=== PATIENT | female | born 1965 | race Hispanic/Latino ===

== ENCOUNTER → 2017-07-05 | Outpatient (CLI) | payer MEDICAID | END | disposition home or self-care (01) | LOC: RAH 07:44 | PROVIDERS: ATTEND Internal Medicine Gastroenterology | DX: K74.3 Primary biliary cirrhosis (principal); R16.2 Hepatomegaly with splenomegaly, not elsewhere classified | CPT/HCPCS: 76700; 93975 ==

== ENCOUNTER → 2018-02-02 | Outpatient (CLI) | payer MEDICAID | END | disposition home or self-care (01) | LOC: RAH 07:36 | PROVIDERS: ATTEND Internal Medicine | DX: K74.5 Biliary cirrhosis, unspecified (principal) | CPT/HCPCS: 76700; 93975 ==

== ENCOUNTER → 2018-07-09 | Outpatient (CLI) | payer MEDICAID | END | disposition home or self-care (01) | LOC: RAH 07:31 | PROVIDERS: ATTEND Internal Medicine Gastroenterology | DX: R16.2 Hepatomegaly with splenomegaly, not elsewhere classified (principal); K74.3 Primary biliary cirrhosis; Z90.49 Acquired absence of other specified parts of digestive tract | CPT/HCPCS: 76700; 93975 ==

== ENCOUNTER → 2019-01-18 | Outpatient (CLI) | payer MEDICAID | END | disposition home or self-care (01) | LOC: RAH 08:26 | PROVIDERS: ATTEND Internal Medicine Gastroenterology | DX: R16.2 Hepatomegaly with splenomegaly, not elsewhere classified (principal); K74.3 Primary biliary cirrhosis; Z90.49 Acquired absence of other specified parts of digestive tract | CPT/HCPCS: 76700; 93975 ==

== ENCOUNTER 2021-11-16 05:30 | Day surgery (SDC) | payer MEDICAID ==
[2021-11-15 15:39] LABS: BASOPHILS % (AUTO) 0.4 % (0.0-5.0); EOSINOPHILS % (AUTO) 2.1 % (0.0-8.0); LYMPHOCYTES % (AUTO) 14.1 % (21.0-51.0); MEAN CORPUSCULAR HEMOGLOBIN 28.5 pg (27.0-33.0); MEAN CORPUSCULAR HGB CONC 32.5 g/dL (32.0-36.0); MEAN CORPUSCULAR VOLUME 87.8 fL (79-99); MONOCYTES % (AUTO) 6.5 % (3.0-13.0); NEUTROPHILS % (AUTO) 76.5 % (40.0-77.0); PLATELET COUNT (AUTO) 47 K/uL (130-400); WHITE BLOOD COUNT (AUTO) 4.8 K/uL (4.8-10.8)
[2021-11-15 15:45] LABS: APPEARANCE,URINE CLEAR (CLEAR); BILIRUBIN,URINE NEGATIVE (NEGATIVE); COLOR,URINE LIGHT-YELLOW (YELLOW); GLUCOSE, URINE (UA) 300 mg/dL (NEGATIVE); KETONES,URINE NEGATIVE (NEGATIVE); LEUKOCYTE ESTERASE ,URINE 250 Leu/uL (NEGATIVE); NITRATE,URINE NEGATIVE (NEGATIVE); OCCULT BLOOD,URINE NEGATIVE (NEGATIVE); PROTEIN,URINE NEGATIVE (NEGATIVE); UROBILINOGEN,URINE 0.2 mg/dL (0.2-1.0)
[2021-11-15 15:49] LABS: RBC,URINE 0-1 /HPF (0-1); SQUAMOUS EPITHELIAL CELL,UR RARE /HPF (0-2)
[2021-11-15 16:03] LABS: INR 1.1 (0.85-1.15); PROTHROMBIN TIME 11.9 SEC (9.6-11.6)
[2021-11-15 16:04] LABS: PARTIAL THROMBOPLASTIN TIME 27.7 SEC (26.3-35.5)
[2021-11-15 16:05] LABS: PLATELET MORPHOLOGY COMMENT DECREASED
[2021-11-15 16:49] VITALS: BP 160/70
[2021-11-16] VITALS (20 sets, daily range): BP systolic 79–145; BP diastolic 30–74
[~2021-11-16] VITALS: Ht 152.4 cm; Wt 94.1 kg
[2021-11-16] MEDS ORDERED: 0.9%NACL 1000ML 1,000 ML IV ONE (06:14)
[2021-11-16] MEDS ORDERED: FERR-72 PO (06:28)
[2021-11-16] MEDS ORDERED: LORA10TA7 PO (06:28)
[2021-11-16] MEDS ORDERED: FAMO20TA8 PO (06:28)
[2021-11-16] MEDS ORDERED: GLYB5TAB8 PO ×2 (06:28)
[2021-11-16] MEDS ORDERED: LISI20TA24 PO (06:28)
[2021-11-16] MEDS ORDERED: INSU10VI3 SQ (06:28)
[2021-11-16] MEDS ORDERED: METF-444 PO (06:28)
[2021-11-16] MEDS ORDERED: URSO250T12 PO ×2 (06:28)
[2021-11-16] MEDS ORDERED: METO50TA18 PO (06:28)
[2021-11-16] MEDS ORDERED: INSULIN HUMULIN R 100 UNIT/ML 3ML ONE (07:20)
[2021-11-16] MEDS ORDERED: FENTANYL CITRATE PF 50 MCG/1 ML 2ML VIAL ONE ×2 (07:31→09:54)
[2021-11-16] MEDS ORDERED: ROCURONIUM 10MG/1ML SYR 10 MG/ML ML ONE (07:31)
[2021-11-16] MEDS ORDERED: ONDANSETRON 4MG INJ ONE (07:31)
[2021-11-16] MEDS ORDERED: PROPOFOL 10 MG/ML 20ML VIAL IV ONE (07:31)
[2021-11-16] MEDS ORDERED: MIDAZOLAM HCL 1 MG/ML 2ML VIAL ONE (08:43)
[2021-11-16] MEDS ORDERED: LACTATED RINGERS 1000ML 1,000 ML IV SCH (09:00)
[2021-11-16] MEDS ORDERED: EPHEDRINE SULFATE 50 MG/ML AMPULE ONE ×2 (09:31→10:40)
[2021-11-16] MEDS ORDERED: ALBUMIN (HUMAN) 5% 250 ML IV ONE (10:30)
== END 2021-11-16 12:20 | disposition home or self-care (01) ==
LOC: DAH 05:30
PROVIDERS: ATTEND Obstetrics & Gynecology
DX: N95.0 Postmenopausal bleeding (principal); N95.2 Postmenopausal atrophic vaginitis; N84.0 Polyp of corpus uteri; E66.01 Morbid (severe) obesity due to excess calories; E11.9 Type 2 diabetes mellitus without complications; E78.5 Hyperlipidemia, unspecified; F41.9 Anxiety disorder, unspecified; F31.9 Bipolar disorder, unspecified; D50.9 Iron deficiency anemia, unspecified; K76.0 Fatty (change of) liver, not elsewhere classified; Z98.891 History of uterine scar from previous surgery; Z90.49 Acquired absence of other specified parts of digestive tract; Z82.49 Family history of ischemic heart disease and other diseases of the circulatory system; Z83.3 Family history of diabetes mellitus; Z83.438 Family history of other disorder of lipoprotein metabolism and other lipidemia; Z79.84 Long term (current) use of oral hypoglycemic drugs; Z68.38 Body mass index [BMI] 38.0-38.9, adult; Z79.899 Other long term (current) drug therapy
CPT/HCPCS: 84703; 84702; 85025; 85610; 85730; 86850; 86900; 86901; 87088; 87426; 81001; 36415; 58558; 82948 ×2; 88305; 88342; 88341; A6260; J1815; A4663; J7030 ×2; A4351; P9045; J3010 ×2; J3490 ×3; J2250; J2405; A4215; A4223; A4222; A4221; J2704

== ENCOUNTER 2023-01-29 11:18 | Emergency (ER) | payer MEDICAID ==
[~2023-01-29] VITALS: Ht 152.4 cm; Wt 98.4 kg
[~2023-01-29 11:18] MED LIST: FAMO20TA8 PO; FERR-72 PO; GLYB5TAB8 PO; INSU10VI3 SQ; LISI20TA24 PO; LORA10TA7 PO; METF-444 PO; METO50TA18 PO; URSO250T12 PO
[2023-01-29 12:50] LABS: HEMATOCRIT 24.3 % (36-48); MEAN CORPUSCULAR HEMOGLOBIN 30.1 pg (27.0-33.0); MEAN CORPUSCULAR HGB CONC 31.7 g/dL (32.0-36.0); MEAN CORPUSCULAR VOLUME 94.9 fL (79-99); PLATELET COUNT (AUTO) 62 K/uL (130-400); RED BLOOD CELL COUNT(AUTO) 2.56 MIL/uL (4.00-5.50); RED CELL DISTRIBUTION WIDTH 14.7 % (11.0-15.5)
[2023-01-29 13:05] LABS: CREATININE 1.3 mg/dL (0.5-1.5); POTASSIUM 5.3 mmol/L (3.5-5.1)
[2023-01-29 13:08] LABS: ALBUMIN 2.5 g/dL (3.5-5.0); BILIRUBIN,TOTAL 0.5 mg/dL (0.2-1.0); TOTAL PROTEIN, SERUM 7.4 g/dL (6.0-8.3)
[2023-01-29 13:14] LABS: B-TYPE NATRIURETIC PEPTIDE 39 pg/mL (0-100)
[2023-01-29 13:23] LABS: BAND NEUTROPHILS % (MANUAL) 1 % (0-2); BASOPHILS % (MANUAL) 1 % (0-2); EOSINOPHILS % (MANUAL) 2 % (1-6); LYMPHOCYTES % (MANUAL) 18 % (22-44); MAN.DIFF COMMENT-IMPRESSION MANUAL DIFFERENTIAL; MONOCYTES % (MANUAL) 2 % (2-9); SEGMENTED NEUTROPHILS % 76 % (40-70); TOTAL CELLS COUNTED 100; WBC MORPHOLOGY CONSISTENT W/DIFF
[2023-01-29 13:24] LABS: PLATELET MORPHOLOGY COMMENT DECREASED
[2023-01-29 14:20] VITALS: PULSE 97; RESP 20
[2023-01-29] MEDS ORDERED: ALBUTEROL 0.083% 2.5 MG/3 ML INH IH ONE (14:30)
[2023-01-29] MEDS ORDERED: FUROSEMIDE 40MG VIAL IV ONE (14:30)
[2023-01-29] MEDS ORDERED: FURO40TA5 PO (17:08)
[2023-01-29 17:27] VITALS: BP 124/61; PULSE 96; RESP 18; O2SAT 98
== END 2023-01-29 17:28 | disposition home or self-care (01) ==
LOC: EDH 11:18
DX: R60.9 Edema, unspecified (principal); K74.60 Unspecified cirrhosis of liver; E11.65 Type 2 diabetes mellitus with hyperglycemia; E87.5 Hyperkalemia; E78.00 Pure hypercholesterolemia, unspecified; I10 Essential (primary) hypertension; K21.9 Gastro-esophageal reflux disease without esophagitis; Z79.4 Long term (current) use of insulin; Z79.84 Long term (current) use of oral hypoglycemic drugs; Z79.899 Other long term (current) drug therapy; Z90.49 Acquired absence of other specified parts of digestive tract
CPT/HCPCS: 99285; 96374; 71045; 80053; 83880; 82140; 85025; 36415; 93005; 94640; J1940

== ENCOUNTER → 2023-09-12 | Outpatient (CLI) | payer MEDICAID ==
[~2023-09-12] MED LIST changes: +ALBUMIN (HUMAN) 25% 200 ML IV ONE; +FURO40TA5 PO
[2023-09-12 09:35] LABS: BASOPHILS # (AUTO) 0.03 K/uL (0.00-0.20); BASOPHILS % (AUTO) 0.5 % (0.0-5.0); EOSINOPHILS # (AUTO) 0.21 K/uL (0.00-0.70); EOSINOPHILS % (AUTO) 3.2 % (0.0-8.0); HEMATOCRIT 25.8 % (36-48); IMMATURE GRANULOCYTE ABSOLUTE 0.03 K/uL (0-1); LYMPHOCYTES # (AUTO) 0.4 K/uL (1.0-4.8); LYMPHOCYTES % (AUTO) 6.8 % (21.0-51.0); MEAN CORPUSCULAR HGB CONC 31.4 g/dL (32.0-36.0); MONOCYTES # (AUTO) 0.6 K/uL (0.1-1.0); MONOCYTES % (AUTO) 9.4 % (3.0-13.0); NEUTROPHILS # (AUTO) 5.2 K/uL (1.8-7.7); NEUTROPHILS % (AUTO) 79.6 % (40.0-77.0); PLATELET COUNT (AUTO) 110 K/uL (130-400); RED CELL DISTRIBUTION WIDTH 15.3 % (11.0-15.5); WHITE BLOOD COUNT (AUTO) 6.5 K/uL (4.8-10.8)
[2023-09-12 09:46] LABS: INR 1.19 (0.85-1.15); PROTHROMBIN TIME 12.7 SEC (9.6-11.6)
[2023-09-12 09:48] LABS: PARTIAL THROMBOPLASTIN TIME 27.3 SEC (26.3-35.5)
[2023-09-12 09:49] LABS: ALBUMIN 2.5 g/dL (3.5-5.0); BILIRUBIN,TOTAL 0.5 mg/dL (0.2-1.0); CREATININE 1.9 mg/dL (0.5-1.0); POTASSIUM 5.4 mmol/L (3.5-5.1); TOTAL PROTEIN, SERUM 7.9 g/dL (6.0-8.3)
[2023-09-12 13:52] LABS: TOTAL PROTEIN,BODY FLUID 2.8 g/dL
[2023-09-12 15:23] LABS: BODY FLUID RBC 227038 /cu. mm.; BODY FLUID WBC 175 /cu. mm.
[2023-09-12 15:28] LABS: APPEARANCE BODY FLUID BLOODY (CLEAR); COLOR,BODY FLUID RED (LT YELLOW); SPECIMENTYPE,BODY FLUID ASCITES; TOTAL VOLUME,BODY FLUID 8100 mL
[2023-09-12 17:10] LABS: BF LYMPHOCYTE 37 %; BF MACROPHAGE 50; BF MESOTHELIAL 2 %; BF MONOCYTE 1 %; BF TOTAL CELLS COUNTED 100
== END | disposition home or self-care (01) ==
LOC: RAH 08:47
PROVIDERS: ATTEND Internal Medicine Gastroenterology
DX: K70.31 Alcoholic cirrhosis of liver with ascites (principal); D64.9 Anemia, unspecified; K76.82 Hepatic encephalopathy; I85.10 Secondary esophageal varices without bleeding; K21.9 Gastro-esophageal reflux disease without esophagitis; K29.50 Unspecified chronic gastritis without bleeding; R14.0 Abdominal distension (gaseous); K44.9 Diaphragmatic hernia without obstruction or gangrene; K76.0 Fatty (change of) liver, not elsewhere classified; K62.89 Other specified diseases of anus and rectum; E55.9 Vitamin D deficiency, unspecified; F41.9 Anxiety disorder, unspecified; F31.9 Bipolar disorder, unspecified; Z90.49 Acquired absence of other specified parts of digestive tract; E11.9 Type 2 diabetes mellitus without complications; I10 Essential (primary) hypertension; E78.00 Pure hypercholesterolemia, unspecified; Z79.4 Long term (current) use of insulin; Z79.899 Other long term (current) drug therapy
CPT/HCPCS: 49083; 84157; 80053; 85025; 89051; 85610; 85730; 87071; 87076; 87205; 82042; 36415; 88305; 88112; P9046; C1729; 96365

== ENCOUNTER → 2023-09-27 | Outpatient (CLI) | payer MEDICAID ==
[2023-09-27 13:55] LABS: ALBUMIN,BODY FLUID 0.9 g/dL; TOTAL PROTEIN,BODY FLUID 2.8 g/dL
[2023-09-27 14:08] LABS: APPEARANCE BODY FLUID CLEAR (CLEAR); COLOR,BODY FLUID YELLOW (LT YELLOW); SPECIMENTYPE,BODY FLUID ASCITES; TOTAL VOLUME,BODY FLUID 7500 mL
[2023-09-27 14:17] LABS: BODY FLUID RBC 4607 /cu. mm.; BODY FLUID WBC 278 /cu. mm.
[2023-09-27 15:02] LABS: BF LYMPHOCYTE 30 %; BF MACROPHAGE 7; BF MESOTHELIAL 59 %; BF MONOCYTE 1 %; BF TOTAL CELLS COUNTED 100
== END | disposition home or self-care (01) ==
LOC: RAH 08:46
PROVIDERS: ATTEND Internal Medicine Gastroenterology
DX: R18.8 Other ascites (principal); K74.3 Primary biliary cirrhosis
CPT/HCPCS: 49083; 84157; 89051; 87071; 87076; 87205; 82042; P9046; C1729

== ENCOUNTER → 2023-11-21 | Outpatient (CLI) | payer MEDICAID ==
[~2023-11-21] MED LIST changes: -ALBUMIN (HUMAN) 25% 200 ML IV ONE
[2023-11-21 11:30] LABS: ALBUMIN,BODY FLUID 0.9 g/dL; TOTAL PROTEIN,BODY FLUID 2.7 g/dL
[2023-11-21 12:08] LABS: APPEARANCE BODY FLUID CLEAR (CLEAR); COLOR,BODY FLUID YELLOW (LT YELLOW); SPECIMENTYPE,BODY FLUID ASCITES; TOTAL VOLUME,BODY FLUID 3500 mL
[2023-11-21 12:10] LABS: BODY FLUID RBC 1407 /cu. mm.; BODY FLUID WBC 263 /cu. mm.
[2023-11-21 13:25] LABS: BF BLAST 13 %; BF LYMPHOCYTE 39 %; BF MESOTHELIAL 35 %; BF MONOCYTE 9 %; BF TOTAL CELLS COUNTED 100
== END | disposition home or self-care (01) ==
LOC: RAH 08:09
PROVIDERS: ATTEND Internal Medicine Gastroenterology
DX: R18.8 Other ascites (principal); K74.3 Primary biliary cirrhosis; I10 Essential (primary) hypertension; E78.00 Pure hypercholesterolemia, unspecified; E11.9 Type 2 diabetes mellitus without complications; F41.9 Anxiety disorder, unspecified; F31.9 Bipolar disorder, unspecified; K21.9 Gastro-esophageal reflux disease without esophagitis; D64.9 Anemia, unspecified; K76.82 Hepatic encephalopathy; K29.50 Unspecified chronic gastritis without bleeding; K44.9 Diaphragmatic hernia without obstruction or gangrene; K76.0 Fatty (change of) liver, not elsewhere classified; E55.9 Vitamin D deficiency, unspecified; K62.89 Other specified diseases of anus and rectum; R14.0 Abdominal distension (gaseous); E66.9 Obesity, unspecified; I85.10 Secondary esophageal varices without bleeding; Z90.49 Acquired absence of other specified parts of digestive tract; Z68.35 Body mass index [BMI] 35.0-35.9, adult; Z79.01 Long term (current) use of anticoagulants; Z79.4 Long term (current) use of insulin; Z79.899 Other long term (current) drug therapy
CPT/HCPCS: 49083; 84157; 89051; 87071; 87076; 87205; 82042; 88305; 88112; C1729

== ENCOUNTER → 2023-12-05 | Outpatient (CLI) | payer MEDICAID ==
[~2023-12-05] MED LIST changes: +ALBUMIN (HUMAN) 25% 100 ML IV ONE
--- NOTE | 2023-12-05 13:09 | HMCIMG ---
US ABDOMINAL PARACENTESIS IR REASON: ASCITES TECHNIQUE: Paracentesis was performed with ultrasound guidance. The puncture site was selected in the Left lower quadrant and overlying skin prepped and draped in a sterile fashion. 1% Xylocaine infiltration was performed. Catheter was placed in the fluid using trocar technique. 6.2 L were removed. Fluid sample was submitted for laboratory evaluation. The patient showed no evidence of complication during the procedure. IMPRESSION: 1. Ultrasound-guided paracentesis.
[2023-12-05 15:19] LABS: APPEARANCE BODY FLUID SLIGHTLY CLOUDY (CLEAR); COLOR,BODY FLUID LT YELLOW (LT YELLOW); SPECIMENTYPE,BODY FLUID ASCITES; TOTAL VOLUME,BODY FLUID 6200 mL
[2023-12-05 15:40] LABS: BODY FLUID RBC 975 /cu. mm.; BODY FLUID WBC 122 /cu. mm.
[2023-12-05 15:44] LABS: TOTAL PROTEIN,BODY FLUID 2.8 g/dL
[2023-12-05 16:24] LABS: BF EOSINOPHIL 1 %; BF LYMPHOCYTE 31 %; BF MACROPHAGE 58; BF MESOTHELIAL 1 %; BF TOTAL CELLS COUNTED 100
== END | disposition home or self-care (01) ==
LOC: RAH 09:10
PROVIDERS: ATTEND Internal Medicine Gastroenterology
DX: R18.8 Other ascites (principal); K74.3 Primary biliary cirrhosis; D64.9 Anemia, unspecified; K76.82 Hepatic encephalopathy; I85.10 Secondary esophageal varices without bleeding; K29.50 Unspecified chronic gastritis without bleeding; R14.0 Abdominal distension (gaseous); K44.9 Diaphragmatic hernia without obstruction or gangrene; K76.0 Fatty (change of) liver, not elsewhere classified; E55.9 Vitamin D deficiency, unspecified; K62.89 Other specified diseases of anus and rectum; E66.9 Obesity, unspecified; I10 Essential (primary) hypertension; E11.9 Type 2 diabetes mellitus without complications; E78.00 Pure hypercholesterolemia, unspecified; K21.9 Gastro-esophageal reflux disease without esophagitis; F41.9 Anxiety disorder, unspecified; Z68.35 Body mass index [BMI] 35.0-35.9, adult; F31.9 Bipolar disorder, unspecified; Z90.49 Acquired absence of other specified parts of digestive tract; Z79.4 Long term (current) use of insulin; Z79.899 Other long term (current) drug therapy
CPT/HCPCS: 49083; 84157; 89051; 87071; 87205; 82042; 88305; 88112; P9046 ×2; C1729; 96365

== ENCOUNTER → 2023-12-19 | Outpatient (CLI) | payer MEDICAID ==
[~2023-12-19] MED LIST changes: -ALBUMIN (HUMAN) 25% 100 ML IV ONE
[2023-12-19 10:07] LABS: BASOPHILS # (AUTO) 0.02 K/uL (0.00-0.20); BASOPHILS % (AUTO) 0.5 % (0.0-5.0); EOSINOPHILS # (AUTO) 0.15 K/uL (0.00-0.70); EOSINOPHILS % (AUTO) 3.6 % (0.0-8.0); HEMATOCRIT 28.3 % (36-48); IMMATURE GRANULOCYTE ABSOLUTE 0.03 K/uL (0-1); LYMPHOCYTES # (AUTO) 0.4 K/uL (1.0-4.8); MEAN CORPUSCULAR HEMOGLOBIN 28.8 pg (27.0-33.0); MEAN CORPUSCULAR HGB CONC 32.2 g/dL (32.0-36.0); MEAN CORPUSCULAR VOLUME 89.6 fL (79-99); MONOCYTES # (AUTO) 0.3 K/uL (0.1-1.0); MONOCYTES % (AUTO) 8.1 % (3.0-13.0); NEUTROPHILS # (AUTO) 3.3 K/uL (1.8-7.7); NEUTROPHILS % (AUTO) 77.1 % (40.0-77.0); PLATELET COUNT (AUTO) 68 K/uL (130-400); RED BLOOD CELL COUNT(AUTO) 3.16 MIL/uL (4.00-5.50); RED CELL DISTRIBUTION WIDTH 18.5 % (11.0-15.5); WHITE BLOOD COUNT (AUTO) 4.2 K/uL (4.8-10.8)
[2023-12-19 10:16] LABS: INR 1.17 (0.85-1.15); PROTHROMBIN TIME 12.5 SEC (9.6-11.6)
[2023-12-19 10:17] LABS: PARTIAL THROMBOPLASTIN TIME 27.6 SEC (26.3-35.5)
[2023-12-19 10:30] LABS: PLATELET MORPHOLOGY COMMENT DECREASED
[2023-12-19 10:38] LABS: ALBUMIN 2.6 g/dL (3.5-5.0); BILIRUBIN,TOTAL 0.6 mg/dL (0.2-1.0); CREATININE 2.2 mg/dL (0.5-1.0); POTASSIUM 5.2 mmol/L (3.5-5.1); TOTAL PROTEIN, SERUM 7.3 g/dL (6.0-8.3)
[2023-12-19 11:39] LABS: APPEARANCE BODY FLUID CLEAR (CLEAR); COLOR,BODY FLUID YELLOW (LT YELLOW); SPECIMENTYPE,BODY FLUID ASCITES; TOTAL VOLUME,BODY FLUID 3500 mL
[2023-12-19 11:50] LABS: BODY FLUID RBC 563 /cu. mm.; BODY FLUID WBC 517 /cu. mm.
[2023-12-19 12:28] LABS: BF LYMPHOCYTE 21 %; BF MESOTHELIAL 51 %; BF MONOCYTE 15 %; BF TOTAL CELLS COUNTED 100
== END | disposition home or self-care (01) ==
LOC: RAH 09:14
PROVIDERS: ATTEND Internal Medicine Gastroenterology
DX: R18.8 Other ascites (principal); Z79.01 Long term (current) use of anticoagulants
CPT/HCPCS: 49083; 80053; 85025; 89051; 85610; 85730; 36415; C1729

== ENCOUNTER → 2024-01-02 | Outpatient (CLI) | payer MEDICAID ==
[~2024-01-02] MED LIST changes: +ALBUMIN (HUMAN) 25% 200 ML IV ONE
--- NOTE | 2024-01-02 10:35 | NUR ---
U/S GUIDED PARACENTESIS PROCEDURE PERFORMED BY DR. Janes ALEGRIA. PUNCTURE SITE LLQ AND PATIENT TOLERATED PROCEDURE WELL. TOTAL REMOVED 6.0 LITERS OF CLOUDY, YELLOW FLUID- SPECIMEN SENT TO LAB. END OF PROCEDURE AT 1025. CATHETER REMOVED AND DRESSING APPLIED TO LLQ- NO BLEEDING NOTED. DISCHARGE INSTRUCTIONS GIVEN TO PATIENT AND VERBALIZED UNDERSTANDING. PATIENT DISCHARGED VIA W/C IN STABLE CONDITION ACCOMPANIED BY DAUGHTER.
--- NOTE | 2024-01-02 11:46 | HMCIMG ---
US ABDOMINAL PARACENTESIS IR REASON: ASCITES TECHNIQUE: Paracentesis was performed with ultrasound guidance. The puncture site was selected in the Left lower quadrant and overlying skin prepped and draped in a sterile fashion. 1% Xylocaine infiltration was performed. Catheter was placed in the fluid using trocar technique. 6 L were removed. Fluid sample was submitted for laboratory evaluation. The patient showed no evidence of complication during the procedure. IMPRESSION: 1. Ultrasound-guided paracentesis.
[2024-01-02 16:37] LABS: BODY FLUID RBC 978 /cu. mm.; BODY FLUID WBC 221 /cu. mm.
[2024-01-02 16:41] LABS: APPEARANCE BODY FLUID CLEAR (CLEAR); COLOR,BODY FLUID YELLOW (LT YELLOW); SPECIMENTYPE,BODY FLUID ASCITES; TOTAL VOLUME,BODY FLUID 6000 mL
[2024-01-02 17:50] LABS: BF EOSINOPHIL 1 %; BF LYMPHOCYTE 59 %; BF MACROPHAGE 17; BF MONOCYTE 2 %; BF OTHER CELLS 1; BF TOTAL CELLS COUNTED 100
== END | disposition home or self-care (01) ==
LOC: RAH 09:09
PROVIDERS: ATTEND Internal Medicine Gastroenterology
DX: R18.8 Other ascites (principal); K74.3 Primary biliary cirrhosis; K21.9 Gastro-esophageal reflux disease without esophagitis; D64.9 Anemia, unspecified; I85.10 Secondary esophageal varices without bleeding; K44.9 Diaphragmatic hernia without obstruction or gangrene; E55.9 Vitamin D deficiency, unspecified; K62.89 Other specified diseases of anus and rectum; I10 Essential (primary) hypertension; E78.00 Pure hypercholesterolemia, unspecified; E11.9 Type 2 diabetes mellitus without complications; F41.9 Anxiety disorder, unspecified; E66.9 Obesity, unspecified; F31.9 Bipolar disorder, unspecified; E87.1 Hypo-osmolality and hyponatremia; Z98.891 History of uterine scar from previous surgery; Z90.49 Acquired absence of other specified parts of digestive tract; K76.82 Hepatic encephalopathy; Z79.4 Long term (current) use of insulin; Z79.899 Other long term (current) drug therapy
CPT/HCPCS: 49083; 89051; P9046; C1729; 96365

== ENCOUNTER → 2024-01-16 | Outpatient (CLI) | payer MEDICAID ==
[~2024-01-16] MED LIST changes: -ALBUMIN (HUMAN) 25% 200 ML IV ONE
--- NOTE | 2024-01-16 11:45 | NUR ---
U/S GUIDED PARACENTESIS PROCEDURE PERFORMED BY DR. Janes ALEGRIA. PUNCTURE SITE RIGHT LOWER QUADRANT OF ABDOMEN AND PATIENT TOLERATED PROCEDURE WELL. TOTAL REMOVED 3.7 LITERS OF CLOUDY, BETY FLUID. END OF PROCEDURE AT 1130. CATHETER REMOVED AND DRESSING APPLIED- NO BLEEDING NOTED. SPECIMEN SENT TO LAB. DISCHARGE INSTRUCTIONS GIVEN TO PATIENT AND VERBALIZED UNDERSTANDING. PATIENT DISCHARGED VIA WHEELCHAIR, STABLE, AAO X3 WITH NO C/O PAIN.
--- NOTE | 2024-01-16 13:08 | HMCIMG ---
US ABDOMINAL PARACENTESIS IR REASON: ASCITES TECHNIQUE: Paracentesis was performed with ultrasound guidance. The puncture site was selected in the Left lower quadrant and overlying skin prepped and draped in a sterile fashion. 1% Xylocaine infiltration was performed. Catheter was placed in the fluid using trocar technique. 3.7 L were removed. Fluid sample was submitted for laboratory evaluation. The patient showed no evidence of complication during the procedure. IMPRESSION: 1. Ultrasound-guided paracentesis.
[2024-01-16 14:33] LABS: APPEARANCE BODY FLUID SLIGHTLY CLOUDY (CLEAR); COLOR,BODY FLUID YELLOW (LT YELLOW); SPECIMENTYPE,BODY FLUID ASCITES; TOTAL VOLUME,BODY FLUID 3700 mL
[2024-01-16 15:29] LABS: BODY FLUID RBC 886 /cu. mm.; BODY FLUID WBC 397 /cu. mm.
[2024-01-16 15:52] LABS: BF LYMPHOCYTE 39 %; BF MACROPHAGE 32; BF MESOTHELIAL 12 %; BF OTHER CELLS 6; BF TOTAL CELLS COUNTED 100
== END | disposition home or self-care (01) ==
LOC: RAH 08:57
PROVIDERS: ATTEND Internal Medicine Gastroenterology
DX: R18.8 Other ascites (principal); K74.3 Primary biliary cirrhosis; E78.00 Pure hypercholesterolemia, unspecified; F41.9 Anxiety disorder, unspecified; F31.9 Bipolar disorder, unspecified; K21.9 Gastro-esophageal reflux disease without esophagitis; E66.9 Obesity, unspecified; K76.82 Hepatic encephalopathy; K44.9 Diaphragmatic hernia without obstruction or gangrene; E55.9 Vitamin D deficiency, unspecified; I85.10 Secondary esophageal varices without bleeding; K62.89 Other specified diseases of anus and rectum; E87.1 Hypo-osmolality and hyponatremia; I12.0 Hypertensive chronic kidney disease with stage 5 chronic kidney disease or end stage renal disease; E11.22 Type 2 diabetes mellitus with diabetic chronic kidney disease; N18.9 Chronic kidney disease, unspecified; D63.1 Anemia in chronic kidney disease; E87.5 Hyperkalemia; Z90.49 Acquired absence of other specified parts of digestive tract; Z68.34 Body mass index [BMI] 34.0-34.9, adult; Z79.4 Long term (current) use of insulin; Z79.899 Other long term (current) drug therapy
CPT/HCPCS: 49083; 89051; 88305; 88112; C1729

== ENCOUNTER → 2024-01-29 | Outpatient (CLI) | payer MEDICAID ==
[~2024-01-29] MED LIST changes: +ALBUMIN HUMAN 25% 200 ML IV ONE
[2024-01-29 09:15] LABS: BASOPHILS # (AUTO) 0.04 K/uL (0.00-0.20); BASOPHILS % (AUTO) 0.8 % (0.0-5.0); EOSINOPHILS % (AUTO) 4.2 % (0.0-8.0); HEMATOCRIT 24.7 % (36-48); IMMATURE GRANULOCYTE ABSOLUTE 0.02 K/uL (0-1); LYMPHOCYTES # (AUTO) 0.4 K/uL (1.0-4.8); LYMPHOCYTES % (AUTO) 8.8 % (21.0-51.0); MEAN CORPUSCULAR HEMOGLOBIN 30.4 pg (27.0-33.0); MEAN CORPUSCULAR HGB CONC 31.6 g/dL (32.0-36.0); MEAN CORPUSCULAR VOLUME 96.1 fL (79-99); MONOCYTES # (AUTO) 0.4 K/uL (0.1-1.0); MONOCYTES % (AUTO) 8.6 % (3.0-13.0); NEUTROPHILS # (AUTO) 3.7 K/uL (1.8-7.7); NEUTROPHILS % (AUTO) 77.2 % (40.0-77.0); PLATELET COUNT (AUTO) 64 K/uL (130-400); RED BLOOD CELL COUNT(AUTO) 2.57 MIL/uL (4.00-5.50); WHITE BLOOD COUNT (AUTO) 4.8 K/uL (4.8-10.8)
--- NOTE | 2024-01-29 09:15 | NUR ---
U/S GD PARACENTESIS PROCEDURE PERFORMED BY DR Leilani ALEGRIA. PUNCTURE SITE LLQ AND PATIENT TOLERATED PROCEDURE WELL. TOTAL REMOVED 7 LITERS OF CLOUDY YELLOW FLUID. ALBUMIN 25% 50 GRAMS IV GIVEN DURING PROCEDURE. SPECIMEN SENT TO LAB. END OF PROCEDURE AT 0845. CATHETER REMOVED AND DRESSING APPLIED. NO BLEEDING NOTED. DISCHARGE INSTRUCTIONS GIVEN TO PATIENT AND VERBALIZED UNDERSTANDING. DISCHARGED VIA W/C AT 0915. AAO X3 WITH NO C/O PAIN.
[2024-01-29 09:18] LABS: PLATELET MORPHOLOGY COMMENT DECREASED
[2024-01-29 09:29] LABS: INR 1.17 (0.85-1.15); PROTHROMBIN TIME 12.5 SEC (9.6-11.6)
[2024-01-29 09:30] LABS: ALBUMIN 2.5 g/dL (3.5-5.0); BILIRUBIN,TOTAL 0.6 mg/dL (0.2-1.0); CREATININE 2.6 mg/dL (0.5-1.0); POTASSIUM 4.8 mmol/L (3.5-5.1); TOTAL PROTEIN, SERUM 7.2 g/dL (6.0-8.3)
[2024-01-29 09:31] LABS: PARTIAL THROMBOPLASTIN TIME 26.4 SEC (26.3-35.5)
--- NOTE | 2024-01-29 11:14 | HMCIMG ---
US ABDOMINAL PARACENTESIS IR REASON: ASCITES TECHNIQUE: Paracentesis was performed with ultrasound guidance. The puncture site was selected in the Left lower quadrant and overlying skin prepped and draped in a sterile fashion. 1% Xylocaine infiltration was performed. Catheter was placed in the fluid using trocar technique. 7 L were removed. Fluid sample was submitted for laboratory evaluation. The patient showed no evidence of complication during the procedure. IMPRESSION: 1. Ultrasound-guided paracentesis.
[2024-01-29 13:32] LABS: APPEARANCE BODY FLUID CLEAR (CLEAR); COLOR,BODY FLUID YELLOW (LT YELLOW); SPECIMENTYPE,BODY FLUID ASCITES; TOTAL VOLUME,BODY FLUID 7000 mL
[2024-01-29 13:39] LABS: ALBUMIN,BODY FLUID 0.8 g/dL; TOTAL PROTEIN,BODY FLUID 2.4 g/dL
[2024-01-29 13:43] LABS: BODY FLUID RBC 484 /cu. mm.; BODY FLUID WBC 353 /cu. mm.
[2024-01-29 14:52] LABS: BF EOSINOPHIL 1 %; BF LYMPHOCYTE 35 %; BF MACROPHAGE 31; BF MESOTHELIAL 1 %; BF MONOCYTE 1 %; BF OTHER CELLS 1; BF TOTAL CELLS COUNTED 100
== END ==
LOC: RAH 07:17
PROVIDERS: ATTEND Internal Medicine Gastroenterology
DX: R18.8 Other ascites (principal); E78.00 Pure hypercholesterolemia, unspecified; F41.9 Anxiety disorder, unspecified; F31.9 Bipolar disorder, unspecified; K21.9 Gastro-esophageal reflux disease without esophagitis; I12.9 Hypertensive chronic kidney disease with stage 1 through stage 4 chronic kidney disease, or unspecified chronic kidney disease; E11.22 Type 2 diabetes mellitus with diabetic chronic kidney disease; N18.9 Chronic kidney disease, unspecified; K74.3 Primary biliary cirrhosis; K76.82 Hepatic encephalopathy; I85.10 Secondary esophageal varices without bleeding; K44.9 Diaphragmatic hernia without obstruction or gangrene; E55.9 Vitamin D deficiency, unspecified; K62.89 Other specified diseases of anus and rectum; E87.1 Hypo-osmolality and hyponatremia; E87.5 Hyperkalemia; D63.1 Anemia in chronic kidney disease; E66.9 Obesity, unspecified; Z68.34 Body mass index [BMI] 34.0-34.9, adult; Z90.49 Acquired absence of other specified parts of digestive tract; Z79.4 Long term (current) use of insulin; Z79.899 Other long term (current) drug therapy
CPT/HCPCS: 49083; 84157; 80053; 85025; 89051; 85610; 85730; 87071; 87076; 87205; 82042; 36415; 88305; 88112; P9046; C1729; 96365

== ENCOUNTER → 2024-02-13 | Outpatient (CLI) | payer MEDICAID ==
--- NOTE | 2024-02-13 10:50 | NUR ---
U/S GUIDED PARACENTESIS PREFORMED BY DR Leilani ALEGRIA. TOLERATED PROCEDURE. 6.0 LITERS OF YELLOW CLOUDY ASCITES FLUID REMOVED. ALBUMIN 25% 50 GRAMS GIVEN. PUNCTURE SITE TO RLQ. ALBUMIN 25% 50 GRAMS GIVEN. END OF PROCEDURE AT 1030. DRESSING DRY AND INTACT. NO BLEEDING NOTED. DENIES PAIN. A&O. DISCHARGE INSTRUCTIONS GIVEN. DISCHARGE VIA WHEELCHAIR. A&O.
[2024-02-13 12:52] LABS: APPEARANCE BODY FLUID SLIGHTLY CLOUDY (CLEAR); COLOR,BODY FLUID YELLOW (LT YELLOW); SPECIMENTYPE,BODY FLUID ASCITES; TOTAL VOLUME,BODY FLUID 6000 mL
[2024-02-13 13:01] LABS: BODY FLUID RBC 428 /cu. mm.; BODY FLUID WBC 270 /cu. mm.
--- NOTE | 2024-02-13 13:23 | HMCIMG ---
US ABDOMINAL PARACENTESIS IR REASON: ASCITES TECHNIQUE: Paracentesis was performed with ultrasound guidance. The puncture site was selected in the Right lower quadrant and overlying skin prepped and draped in a sterile fashion. 1% Xylocaine infiltration was performed. Catheter was placed in the fluid using trocar technique. 6 L were removed. Fluid sample was submitted for laboratory evaluation. The patient showed no evidence of complication during the procedure. IMPRESSION: 1. Ultrasound-guided paracentesis.
[2024-02-13 16:54] LABS: BF LYMPHOCYTE 52 %; BF MACROPHAGE 10; BF MONOCYTE 5 %; BF OTHER CELLS 5; BF TOTAL CELLS COUNTED 100
== END | disposition home or self-care (01) ==
LOC: RAH 09:06
PROVIDERS: ATTEND Internal Medicine Gastroenterology
DX: R18.8 Other ascites (principal); E78.00 Pure hypercholesterolemia, unspecified; F41.9 Anxiety disorder, unspecified; F31.9 Bipolar disorder, unspecified; K21.9 Gastro-esophageal reflux disease without esophagitis; I12.9 Hypertensive chronic kidney disease with stage 1 through stage 4 chronic kidney disease, or unspecified chronic kidney disease; E11.22 Type 2 diabetes mellitus with diabetic chronic kidney disease; N18.9 Chronic kidney disease, unspecified; E66.9 Obesity, unspecified; Z90.49 Acquired absence of other specified parts of digestive tract; K74.3 Primary biliary cirrhosis; D64.9 Anemia, unspecified; K76.82 Hepatic encephalopathy; I85.10 Secondary esophageal varices without bleeding; K44.9 Diaphragmatic hernia without obstruction or gangrene; E55.9 Vitamin D deficiency, unspecified; K62.89 Other specified diseases of anus and rectum; E87.1 Hypo-osmolality and hyponatremia; E87.5 Hyperkalemia; Z68.36 Body mass index [BMI] 36.0-36.9, adult; Z79.4 Long term (current) use of insulin; Z79.899 Other long term (current) drug therapy
CPT/HCPCS: 49083; 89051; P9046; C1729; 96365

== ENCOUNTER → 2024-02-26 | Outpatient (CLI) | payer MEDICAID ==
--- NOTE | 2024-02-26 09:20 | NUR ---
U/S GD PARACENTESIS TOLERATED PROCEDURE. PERFORMED BY DR Marques CLIFTON. 7.7 LITERS OF YELLOW CLOUDY FLUID REMOVED. PUNCTURE SITE TO RLQ. SPECIMEN SENT TO LAB. ALBUMIN 25% 50 GRAMS GIVEN IV. END OF PROCEDURE AT 0900. DRESSING DRY AND INTACT. NO BLEEDING NOTED. DISCHARGE INSTRUCTIONS GIVEN. VERBALIZED UNDERSTANDING. [place] PAIN. DISCHARGE VIA WHEELCHAIR. DENIES PAIN. A&O.
--- NOTE | 2024-02-26 09:30 | HMCIMG ---
ULTRASOUND GUIDED PARACENTESIS: INDICATION: Ascites TECHNIQUE: Informed consent was obtained. Timeout performed. All elements of maximal sterile barrier technique, including hand hygiene and cutaneous antisepsis were used. Patient was placed supine. Right lower quadrant was prepped and draped in sterile fashion. Local anesthesia was applied. Then, under ultrasound guidance, a 5F centesis needle was advanced through the abdominal wall and into a pocket of fluid in the peritoneum. It yielded 7.7 L of fluid. The catheter was removed and sterile dressing applied. Blood pressure monitoring was performed during the procedure. Complications: None Blood loss: <5 mL. IMPRESSION: Successful ultrasound guided paracentesis.
[2024-02-26 14:41] LABS: BODY FLUID RBC 1538 /cu. mm.; BODY FLUID WBC 119 /cu. mm.
[2024-02-26 14:54] LABS: APPEARANCE BODY FLUID CLEAR (CLEAR); COLOR,BODY FLUID YELLOW (LT YELLOW); SPECIMENTYPE,BODY FLUID ASCITES; TOTAL VOLUME,BODY FLUID 7700 mL
[2024-02-26 16:16] LABS: BF EOSINOPHIL 1 %; BF LYMPHOCYTE 33 %; BF MACROPHAGE 54; BF OTHER CELLS 1; BF TOTAL CELLS COUNTED 100
== END | disposition home or self-care (01) ==
LOC: RAH 07:55
PROVIDERS: ATTEND Internal Medicine Gastroenterology
DX: R18.8 Other ascites (principal); K74.3 Primary biliary cirrhosis; D64.9 Anemia, unspecified; K76.82 Hepatic encephalopathy; I85.10 Secondary esophageal varices without bleeding; K21.9 Gastro-esophageal reflux disease without esophagitis; K44.9 Diaphragmatic hernia without obstruction or gangrene; K62.89 Other specified diseases of anus and rectum; I12.9 Hypertensive chronic kidney disease with stage 1 through stage 4 chronic kidney disease, or unspecified chronic kidney disease; E11.22 Type 2 diabetes mellitus with diabetic chronic kidney disease; N18.9 Chronic kidney disease, unspecified; E78.00 Pure hypercholesterolemia, unspecified; F41.9 Anxiety disorder, unspecified; F31.9 Bipolar disorder, unspecified; E66.9 Obesity, unspecified; E87.1 Hypo-osmolality and hyponatremia; E87.5 Hyperkalemia; Z68.36 Body mass index [BMI] 36.0-36.9, adult; Z90.49 Acquired absence of other specified parts of digestive tract; Z79.4 Long term (current) use of insulin; Z79.899 Other long term (current) drug therapy
CPT/HCPCS: 49083; 89051; P9046; C1729; 96365

== ENCOUNTER → 2024-03-12 | Outpatient (CLI) | payer MEDICAID ==
[~2024-03-12] MED LIST changes: +ALBUMIN HUMAN 25% 100 ML IV ONE; -ALBUMIN HUMAN 25% 200 ML IV ONE
--- NOTE | 2024-03-12 10:30 | NUR ---
U/S GD PARACENTESIS PROCEDURE PERFORMED BY DR Marques CLIFTON. PUNCTURE SITE RLQ AND PATIENT TOLERATED PROCEDURE WELL. TOTAL REMOVED 9.6 LITERS OF CLOUDY YELLOW FLUID. ALBUMIN 25% 50 GRAMS IV GIVEN DURING PROCEDURE. SPECIMEN SENT TO LAB. END OF PROCEDURE AT 1000. CATHETER REMOVED AND DRESSING APPLIED. NO BLEEDING NOTED. DISCHARGE INSTRUCTIONS GIVEN TO PATIENT AND VERBALIZED UNDERSTANDING. DISCHARGED VIA W/C AT 1030. AAO X3 WITH NO C/O PAIN.
[2024-03-12 11:00] LABS: BASOPHILS # (AUTO) 0.01 K/uL (0.00-0.20); BASOPHILS % (AUTO) 0.4 % (0.0-5.0); EOSINOPHILS # (AUTO) 0.18 K/uL (0.00-0.70); EOSINOPHILS % (AUTO) 7.3 % (0.0-8.0); IMMATURE GRANULOCYTE ABSOLUTE 0.01 K/uL (0-1); LYMPHOCYTES # (AUTO) 0.3 K/uL (1.0-4.8); LYMPHOCYTES % (AUTO) 13.5 % (21.0-51.0); MEAN CORPUSCULAR HEMOGLOBIN 30.8 pg (27.0-33.0); MEAN CORPUSCULAR HGB CONC 31.2 g/dL (32.0-36.0); MEAN CORPUSCULAR VOLUME 98.6 fL (79-99); MONOCYTES # (AUTO) 0.3 K/uL (0.1-1.0); MONOCYTES % (AUTO) 13.1 % (3.0-13.0); NEUTROPHILS # (AUTO) 1.6 K/uL (1.8-7.7); NEUTROPHILS % (AUTO) 65.3 % (40.0-77.0); PLATELET COUNT (AUTO) 50 K/uL (130-400); RED BLOOD CELL COUNT(AUTO) 2.08 MIL/uL (4.00-5.50); RED CELL DISTRIBUTION WIDTH 16.5 % (11.0-15.5); WHITE BLOOD COUNT (AUTO) 2.5 K/uL (4.8-10.8)
[2024-03-12 11:12] LABS: INR 1.15 (0.85-1.15); PROTHROMBIN TIME 12.7 SEC (9.6-11.6)
[2024-03-12 11:13] LABS: PARTIAL THROMBOPLASTIN TIME 28.6 SEC (26.3-35.5)
[2024-03-12 11:14] LABS: ALBUMIN 2.3 g/dL (3.5-5.0); BILIRUBIN,TOTAL 0.4 mg/dL (0.2-1.0); CREATININE 2.8 mg/dL (0.5-1.0); POTASSIUM 4.3 mmol/L (3.5-5.1)
[2024-03-12 11:18] LABS: HEMATOCRIT 20.5 % (36-48)
--- NOTE | 2024-03-12 11:37 | NUR ---
RE: ABNORMAL LABS CRITICAL VALUES HBG-6.4 & HCT-20.5 REPORTED TO [facility] AT 1135. PENDING CALL BACK FROM PHYSICIAN OR NURSE PRACTIONER/PHYSICIAN SAMPLE CHECKER. Addendum: 03/12/24 at 1139 by RAMIRO BETANCOURT RN RN Amended: Links added.
--- NOTE | 2024-03-12 11:38 | HMCIMG ---
US ABDOMINAL PARACENTESIS IR HISTORY: Ascites COMPARISON: None TECHNIQUE: Informed consent was obtained. Risks and benefits were explained to the patient. A timeout was performed. Patient was prepped and draped in a sterile fashion. Local anesthetics was given as required. Under ultrasound guidance, ascites fluid was localized. Paracentesis was performed. FINDINGS: 9.6 L of yellowish fluid was aspirated. Less than 2 cc blood loss is noted. Patient tolerated procedure without complication. Patient left the department in good condition. IMPRESSION: 1. Uncomplicated ultrasound guidance paracentesis.
[2024-03-12 12:23] LABS: BAND NEUTROPHILS % (MANUAL) 5 % (0-2); BASOPHILS % (MANUAL) 3 % (0-2); EOSINOPHILS % (MANUAL) 10 % (1-6); LYMPHOCYTES % (MANUAL) 12 % (22-44); MONOCYTES % (MANUAL) 5 % (2-9); SEGMENTED NEUTROPHILS % 65 % (40-70); TOTAL CELLS COUNTED 100
[2024-03-12 12:24] LABS: MAN.DIFF COMMENT-IMPRESSION MANUAL DIFFERENTIAL; PLATELET MORPHOLOGY COMMENT DECREASED; WBC MORPHOLOGY CONSISTENT W/DIFF
[2024-03-12 13:29] LABS: BODY FLUID RBC 674 /cu. mm.; BODY FLUID WBC 192 /cu. mm.
[2024-03-12 13:53] LABS: APPEARANCE BODY FLUID SLIGHTLY CLOUDY (CLEAR); COLOR,BODY FLUID LT YELLOW (LT YELLOW); SPECIMENTYPE,BODY FLUID ASCITES; TOTAL VOLUME,BODY FLUID 9600 mL
[2024-03-12 14:10] LABS: BF EOSINOPHIL 1 %; BF LYMPHOCYTE 57 %; BF MACROPHAGE 22; BF MESOTHELIAL 11 %; BF MONOCYTE 7 %; BF TOTAL CELLS COUNTED 100
== END | disposition home or self-care (01) ==
LOC: RAH 08:46
PROVIDERS: ATTEND Internal Medicine Gastroenterology
DX: R18.8 Other ascites (principal); K74.3 Primary biliary cirrhosis; D64.9 Anemia, unspecified; K76.82 Hepatic encephalopathy; I85.10 Secondary esophageal varices without bleeding; K44.9 Diaphragmatic hernia without obstruction or gangrene; E55.9 Vitamin D deficiency, unspecified; K62.89 Other specified diseases of anus and rectum; E78.00 Pure hypercholesterolemia, unspecified; F41.9 Anxiety disorder, unspecified; F31.9 Bipolar disorder, unspecified; K21.9 Gastro-esophageal reflux disease without esophagitis; E66.9 Obesity, unspecified; I12.9 Hypertensive chronic kidney disease with stage 1 through stage 4 chronic kidney disease, or unspecified chronic kidney disease; E11.22 Type 2 diabetes mellitus with diabetic chronic kidney disease; N18.9 Chronic kidney disease, unspecified; Z68.36 Body mass index [BMI] 36.0-36.9, adult; Z90.49 Acquired absence of other specified parts of digestive tract; E87.1 Hypo-osmolality and hyponatremia; Z79.4 Long term (current) use of insulin; Z79.899 Other long term (current) drug therapy
CPT/HCPCS: 49083; 80053; 85025; 89051; 85610; 85730; 36415; P9046; C1729; 96365

== ENCOUNTER → 2024-03-26 | Outpatient (CLI) | payer MEDICAID ==
[~2024-03-26] MED LIST changes: -ALBUMIN HUMAN 25% 100 ML IV ONE; +ALBUMIN HUMAN 25% 200 ML IV ONE
--- NOTE | 2024-03-26 09:25 | NUR ---
U/S GD PARACENTESIS TOLERATED PROCEDURE. PERFORMED BY DR Marques CLIFTON. PUNCTURE SITE TO RLQ. 10.0 LITERS OF YELLOW CLOUDY FLUID REMOVED AND SENT TO LAB. ALBUMIN 25% 50 GRAMS GIVEN. END OF PROCEDURE AT 0905. DRESSING DRY AND INTACT. NO BLEEDING NOTED. DISCHARGE INSTRUCTIONS GIVEN TO PT AND DAUGHTER. VERBALIZED UNDERSTANDING. DISCHARGE VIA WHEELCHAIR WITH DAUGHTER. JOCELINE GARCIA. A&O.
[2024-03-26 13:00] LABS: BODY FLUID RBC 1317 /cu. mm.; BODY FLUID WBC 280 /cu. mm.
[2024-03-26 13:41] LABS: BF LYMPHOCYTE 54 %; BF MACROPHAGE 16; BF MESOTHELIAL 6 %; BF MONOCYTE 4 %; BF TOTAL CELLS COUNTED 100
[2024-03-26 13:42] LABS: APPEARANCE BODY FLUID SLIGHTLY CLOUDY (CLEAR); COLOR,BODY FLUID LT YELLOW (LT YELLOW); SPECIMENTYPE,BODY FLUID ASCITES; TOTAL VOLUME,BODY FLUID 10000 mL
--- NOTE | 2024-03-26 13:57 | HMCIMG ---
US ABDOMINAL PARACENTESIS IR HISTORY: Ascites COMPARISON: None TECHNIQUE: Informed consent was obtained. Risks and benefits were explained to the patient. A timeout was performed. Patient was prepped and draped in a sterile fashion. Local anesthetics was given as required. Under ultrasound guidance, ascites fluid was localized. Paracentesis was performed. FINDINGS: 10 L of yellowish fluid was aspirated. Less than 2 cc blood loss is noted. Patient tolerated procedure without complication. Patient left the department in good condition. IMPRESSION: 1. Uncomplicated ultrasound guidance paracentesis.
== END | disposition home or self-care (01) ==
LOC: RAH 07:23
PROVIDERS: ATTEND Internal Medicine Gastroenterology
DX: R18.8 Other ascites (principal); F41.9 Anxiety disorder, unspecified; F31.9 Bipolar disorder, unspecified; I12.9 Hypertensive chronic kidney disease with stage 1 through stage 4 chronic kidney disease, or unspecified chronic kidney disease; E11.22 Type 2 diabetes mellitus with diabetic chronic kidney disease; N18.9 Chronic kidney disease, unspecified; K21.9 Gastro-esophageal reflux disease without esophagitis; E78.00 Pure hypercholesterolemia, unspecified; Z79.4 Long term (current) use of insulin; Z79.899 Other long term (current) drug therapy; Z90.49 Acquired absence of other specified parts of digestive tract
CPT/HCPCS: 49083; 96365; 89051; P9046; C1729

== ENCOUNTER → 2024-04-09 | Outpatient (CLI) | payer MEDICAID ==
--- NOTE | 2024-04-09 09:25 | NUR ---
U/S GD PARACENTESIS TOLERATED PROCEDURE. PERFORMED BY DR Moody ROMO. 10.2 LITERS OF YELLOW CLOUDY FLUID REMOVED. ALBUMIN 25% 50 GRAMS GIVEN IV. END OF PROCEDURE AT 0905. PUNCTURE SITE TO RLQ. DRESSING DRY AND INTACT. NO BLEEDING NOTED. DISCHARGE INSTRUCTIONS GIVEN. VERBALIZED UNDERSTANDING. DISCHARGE WITH DAUGHTER VIA WHEELCHAIR. A&O. DENIES PAIN.
--- NOTE | 2024-04-09 10:37 | HMCIMG ---
ULTRASOUND GUIDED PARACENTESIS: INDICATION: Ascites TECHNIQUE: Informed consent was obtained. Timeout performed. All elements of maximal sterile barrier technique, including hand hygiene and cutaneous antisepsis were used. Patient was placed supine. Right lower quadrant was prepped and draped in sterile fashion. Local anesthesia was applied. Then, under ultrasound guidance, a 5F centesis needle was advanced through the abdominal wall and into a pocket of fluid in the peritoneum. It yielded 10.2 L of fluid. The catheter was removed and sterile dressing applied. Blood pressure monitoring was performed during the procedure. Complications: None Blood loss: <5 mL. IMPRESSION: Successful ultrasound guided paracentesis.
[2024-04-09 14:28] LABS: BODY FLUID RBC 523 /cu. mm.; BODY FLUID WBC 126 /cu. mm.
[2024-04-09 14:30] LABS: APPEARANCE BODY FLUID CLEAR (CLEAR); COLOR,BODY FLUID YELLOW (LT YELLOW); SPECIMENTYPE,BODY FLUID ASCITES; TOTAL VOLUME,BODY FLUID 10200 mL
[2024-04-09 15:07] LABS: BF EOSINOPHIL 1 %; BF LYMPHOCYTE 40 %; BF MACROPHAGE 18; BF MESOTHELIAL 3 %; BF MONOCYTE 2 %; BF OTHER CELLS 1; BF TOTAL CELLS COUNTED 100
== END ==
LOC: RAH 07:23
PROVIDERS: ATTEND Internal Medicine Gastroenterology
DX: R18.8 Other ascites (principal); K74.69 Other cirrhosis of liver; I12.9 Hypertensive chronic kidney disease with stage 1 through stage 4 chronic kidney disease, or unspecified chronic kidney disease; E11.22 Type 2 diabetes mellitus with diabetic chronic kidney disease; N18.9 Chronic kidney disease, unspecified; E78.00 Pure hypercholesterolemia, unspecified; K21.9 Gastro-esophageal reflux disease without esophagitis; F41.9 Anxiety disorder, unspecified; F32.A Depression, unspecified; K76.82 Hepatic encephalopathy; I85.00 Esophageal varices without bleeding; Z90.49 Acquired absence of other specified parts of digestive tract; Z98.891 History of uterine scar from previous surgery; Z79.899 Other long term (current) drug therapy
CPT/HCPCS: 49083; 89051; P9046; C1729; 96365